=== PATIENT | male | born 1990 | race Caucasian/White ===

== ENCOUNTER 2017-06-29 02:53 | Emergency (ER) | payer MEDICAID ==
[~2017-06-29] VITALS: Ht 175.3 cm; Wt 100.0 kg
[2017-06-29 11:39] LABS: CARBON DIOXIDE 25 mEq/L (21-32); CHLORIDE 103 mEq/L (98-107)
[2017-06-29 12:19] VITALS: BP 141/94
== END 2017-06-29 12:26 | disposition home or self-care (01) ==
LOC: ER 02:53
DX: E11.40 Type 2 diabetes mellitus with diabetic neuropathy, unspecified (principal); E11.65 Type 2 diabetes mellitus with hyperglycemia; E66.9 Obesity, unspecified; I10 Essential (primary) hypertension; Z79.4 Long term (current) use of insulin
CPT/HCPCS: 36415; 80048; 99283

== ENCOUNTER 2017-11-07 03:30 | Emergency (ER) | payer MEDICAID ==
[~2017-11-07] VITALS: Ht 175.3 cm; Wt 97.0 kg
[2017-11-07 06:59] LABS: BASOPHILS % 0.8 % (0.0-2.0); EOSINOPHILS % 0.5 % (0.0-5.0); HEMATOCRIT. 38.3 % (42.0-52.0); HEMOGLOBIN. 13.5 g/dL (14.0-18.0); MEAN CORPUSCULAR HEMOGLOBIN 30.2 pg (28.0-32.0); MEAN CORPUSCULAR VOLUME 85.8 fL (80.0-94.0); MEAN PLATELET VOLUME 9.1 fl (7.4-10.4); MONOCYTES % 6.1 % (2.0-8.0); NEUTROPHILS % 60.6 % (40.0-76.0); PLATELET 229 x1000/uL (130-400); RED BLOOD CELL COUNT 4.47 mill/uL (4.7-6.1); RED CELL DISTRIBUTION WIDTH 12.9 % (11.6-14.6)
[2017-11-07 07:04] LABS: CHLORIDE 106 mEq/L (98-107)
[2017-11-07] MEDS ORDERED: MAGNESIUM/ALUMINUM HYDROXIDE/SIMETHICONE 30ML UDC PO STA (07:52)
[2017-11-07] MEDS ORDERED: FAMOTIDINE 20MG TABLET PO ONE (08:00)
[2017-11-07 09:20] VITALS: BP 128/83
== END 2017-11-07 09:40 | disposition home or self-care (01) ==
LOC: ER 03:30
DX: R07.89 Other chest pain (principal); I51.7 Cardiomegaly; R03.0 Elevated blood-pressure reading, without diagnosis of hypertension; E10.9 Type 1 diabetes mellitus without complications; Z79.4 Long term (current) use of insulin
CPT/HCPCS: 36415; 71045; 80053; 83690; 85025; 93005; 99285

== ENCOUNTER 2017-11-08 02:23 | Emergency (ER) | payer MEDICAID ==
[~2017-11-08] VITALS: Ht 172.7 cm; Wt 98.0 kg
[2017-11-08 04:44] LABS: BASOPHILS % 0.6 % (0.0-2.0); EOSINOPHILS % 0.7 % (0.0-5.0); HEMATOCRIT. 36.6 % (42.0-52.0); HEMOGLOBIN. 12.8 g/dL (14.0-18.0); MEAN CORPUSCULAR HEMOGLOBIN 29.9 pg (28.0-32.0); MEAN CORPUSCULAR VOLUME 85.3 fL (80.0-94.0); MEAN PLATELET VOLUME 9.1 fl (7.4-10.4); MONOCYTES % 6.5 % (2.0-8.0); NEUTROPHILS % 61.2 % (40.0-76.0); PLATELET 213 x1000/uL (130-400); RED CELL DISTRIBUTION WIDTH 12.8 % (11.6-14.6)
[2017-11-08 04:49] LABS: CHLORIDE 105 mEq/L (98-107)
[2017-11-08 04:50] LABS: INR 1.1; PROTHROMBIN TIME 11.3 sec (9.4-11.6)
[2017-11-08] MEDS ORDERED: MAGNESIUM/ALUMINUM HYDROXIDE/SIMETHICONE 30ML UDC PO NR (05:45)
[2017-11-08] MEDS ORDERED: VISCOUS LIDOCAINE 2% 15 ML UDC MM NR (05:45)
[2017-11-08] MEDS ORDERED: KETOROLAC 30MG/ML VIAL IV NR (05:45)
[2017-11-08 07:01] VITALS: BP 128/76
== END 2017-11-08 07:24 | disposition home or self-care (01) ==
LOC: ER 02:23
DX: R07.89 Other chest pain (principal); R20.0 Anesthesia of skin; R20.2 Paresthesia of skin; E11.9 Type 2 diabetes mellitus without complications; Z79.4 Long term (current) use of insulin
CPT/HCPCS: 36415; 71045; 80053; 84484; 85025; 85379; 85610; 93005; 96374; 99285; J1885; 96372

== ENCOUNTER 2018-04-05 00:26 | Emergency (ER) | payer MEDICAID ==
[~2018-04-05] VITALS: Ht 172.7 cm; Wt 93.0 kg
[2018-04-05] MEDS ORDERED: KETOROLAC 30MG/ML VIAL IV STA (01:01)
[2018-04-05 01:52] LABS: CHLORIDE 105 mEq/L (98-107)
[2018-04-05 02:24] LABS: BASOPHILS % 0.6 % (0.0-2.0); HEMATOCRIT. 40.6 % (42.0-52.0); HEMOGLOBIN. 14.1 g/dL (14.0-18.0); MEAN CORPUSCULAR HEMOGLOBIN 30.1 pg (28.0-32.0); MEAN CORPUSCULAR VOLUME 86.6 fL (80.0-94.0); MEAN PLATELET VOLUME 9.6 fl (7.4-10.4); MONOCYTES % 7.2 % (2.0-8.0); NEUTROPHILS % 48.2 % (40.0-76.0); PLATELET 229 x1000/uL (130-400); RED BLOOD CELL COUNT 4.69 mill/uL (4.7-6.1); RED CELL DISTRIBUTION WIDTH 13.3 % (11.6-14.6)
[2018-04-05 02:29] LABS: CLARITY URINE CLEAR (CLEAR); COLOR URINE YELLOW (YELLOW); D-DIMER < 0.19 mg/L FEU (<0.50); KETONES URINE NEGATIVE (NEGATIVE); LEUKOCYTE ESTERASE URINE NEGATIVE (NEGATIVE); NITRITE URINE NEGATIVE (NEGATIVE); OCCULT BLOOD URINE NEGATIVE (NEGATIVE); PH URINE 7.5 (4.5-8.0); PROTEIN URINE NEGATIVE (NEGATIVE); SPECIFIC GRAVITY URINE 1.016 (1.005-1.030)
[2018-04-05 05:43] VITALS: BP 134/79
== END 2018-04-05 06:10 | disposition home or self-care (01) ==
LOC: ER 00:26 → CANBEDREQ 16:10
DX: R07.89 Other chest pain (principal); E11.9 Type 2 diabetes mellitus without complications
CPT/HCPCS: 36415; 71045; 80053; 81003; 83690; 83880; 84484; 85025; 85379; 85610; 85730; 93005; 96374; 99285; J1885; Z7610

== ENCOUNTER 2024-01-05 16:18 | Emergency (ER) | payer MEDICAID, OTHER ==
[~2024-01-05] VITALS: Ht 175.3 cm; Wt 90.7 kg
[2024-01-05 16:48] VITALS: O2SAT 99
[2024-01-05 17:02] VITALS: TEMP 99.4
[2024-01-05] MEDS ORDERED: AMLODIPINE 10MG TABLET PO ONE (17:15)
[2024-01-05 17:26] LABS: EOSINOPHILS % 0.4 % (0.0-5.0); HEMATOCRIT. 46.1 % (42.0-52.0); HEMOGLOBIN. 15.8 g/dL (14.0-18.0); LYMPHOCYTES % 37.1 % (20.0-50.0); MEAN CORPUSCULAR HEMOGLOBIN 30.2 pg (28.0-32.0); MEAN CORPUSCULAR HGB CONC 34.4 g/dL (31.0-37.0); MEAN CORPUSCULAR VOLUME 87.9 fL (80.0-94.0); MEAN PLATELET VOLUME 8.8 fl (7.4-10.4); MONOCYTES % 4.8 % (2.0-8.0); NEUTROPHILS % 56.7 % (40.0-76.0); PLATELET 279 x1000/uL (130-400); RED BLOOD CELL COUNT 5.24 mill/uL (4.7-6.1); RED CELL DISTRIBUTION WIDTH 13.4 % (11.6-14.6); WHITE BLOOD COUNT 11.7 x1000/uL (4.5-11.0)
[2024-01-05 17:27] LABS: CHLORIDE 104 mEq/L (98-107); POTASSIUM 3.8 mEq/L (3.5-5.1); SODIUM 135 mEq/L (136-145)
[2024-01-05 17:28] LABS: CALCIUM 9.8 mg/dL (8.7-10.4); CARBON DIOXIDE 22 mEq/L (21-32)
[2024-01-05 17:33] LABS: CREATININE 0.7 mg/dL (0.6-1.3); GLUCOSE 273 mg/dL (70-105); UREA NITROGEN BLOOD 8 mg/dL (9-23)
[2024-01-05] MEDS: NITROGLYCERIN 0.4MG TABLET SL SL PRN (17:33)
[2024-01-05 17:35] LABS: ALANINE AMINOTRANSFERASE 85 IU/L (10-49); ALBUMIN 5.1 g/dL (3.2-4.8); ASPARTATE AMINOTRANSFERASE 37 IU/L (<34)
[2024-01-05 17:36] LABS: BILIRUBIN DIRECT 0.1 mg/dL (<=3.0); BILIRUBIN TOTAL 0.6 mg/dL (0.1-1.0); PROTEIN TOTAL 8.1 g/dL (6.0-8.3)
[2024-01-05] MEDS: ASPIRIN 81MG TABLET PO ONE (17:48)
[2024-01-05] MEDS: AMLODIPINE 5MG TABLET PO NR (17:48)
[2024-01-05 18:36] LABS: TROPONIN I HIGH SENSITIVITY 18 ng/L (3.0-53)
[2024-01-05 19:54] LABS: TROPONIN I HIGH SENSITIVITY 17 ng/L (3.0-53)
[2024-01-05 21:12] LABS: TROPONIN I HIGH SENSITIVITY 15 ng/L (3.0-53)
[2024-01-05 21:40] VITALS: BP 145/91; PULSE 68; RESP 16
== END 2024-01-05 21:47 | disposition home or self-care (01) ==
LOC: ER 16:18
DX: R07.89 Other chest pain (principal); R53.1 Weakness; E11.9 Type 2 diabetes mellitus without complications; I10 Essential (primary) hypertension
CPT/HCPCS: 80076; 80048; 83880; 85025; 84484; 36415; 71045; 93005; 99291; Z7610